=== PATIENT | female | born 1955 | race Caucasian/White ===

== ENCOUNTER 2018-12-19 13:35 | Observation (INO) | payer OTHER ==
[~2018-12-19] VITALS: Ht 162.6 cm; Wt 90.1 kg
[2018-12-19] MEDS ORDERED: SYNTHROID (13:53)
[2018-12-19] MEDS ORDERED: METFORMIN PO (13:53)
[2018-12-19] MEDS ORDERED: GABAPENTIN (13:53)
[2018-12-19] MEDS ORDERED: HYDROCHLOROTH12.5 MG PO (13:53)
[2018-12-19] MEDS ORDERED: SODIUM CHLORIDE FLUSH 10ML SYR IVF ONE (14:00)
[2018-12-19] MEDS ORDERED: NITROGLYCERIN SINGLE TAB 0.4 MG SL PRN (14:00)
[2018-12-19] MEDS ORDERED: NITROGLYCERIN OINT 2%, 1GM TP ONE ×2 (14:00→14:29)
--- NOTE | 2018-12-19 14:09 | NUR ---
PT TO ED FOR SUDDEN ONSET, NONRADIATING, STERNAL CP AT 0800. PT TOOK 162 ASA A FARIBA, THEN WENT TO URGENT CARE. UC REFERRED TO ED. IV ESTABLISHED AND 1 NITRO AND 162 MORE ASA GIVEN BY [facility] SUPERVISOR LIME. PT CONNECTED TO MONITORS. VSS. EDMD ASSESSMENT COMPLETE. EKG COMPLETE. LABS DRAWN. AWAITING RESULTS.
[2018-12-19] MEDS ORDERED: NITROGLYCERIN SINGLE TAB 0.4 MG SL ONE (14:29)
--- NOTE | 2018-12-19 14:33 | NUR ---
PT RESTING IN ROOM WITH AT BS. VSS. PT REPORTS CP 08/21. PT MEDICATED PER SEP. NO NEEDS EXPRESSED. CALL [facility]. AWAITING RESULTS.
[2018-12-19 14:36] LABS: BASOPHILS # (AUTO) 0.02 x10^3/uL (0-0.1); BASOPHILS % (AUTO) 0 % (0-1); EOSINOPHILS # (AUTO) 0.24 x10^3/uL (0-0.4); EOSINOPHILS % (AUTO) 3 % (1-7); LYMPHOCYTES # (AUTO) 1.89 x10^3/uL (1-3.4); LYMPHOCYTES % (AUTO) 25 % (22-44); MD NO; MEAN CORPUSCULAR HEMOGLOBIN 30.7 pg (27.0-34.8); MEAN CORPUSCULAR HGB CONC 33.8 g/dL (32.4-35.8); MEAN CORPUSCULAR VOLUME 90.8 fL (80-100); MONOCYTES # (AUTO) 0.61 x10^3/uL (0.2-0.8); MONOCYTES % (AUTO) 8 % (2-9); NEUTROPHILS # (AUTO) 4.82 x10^3/uL (1.8-6.8); NEUTROPHILS % (AUTO) 64 % (42-75); PLATELET COUNT 231 x10^3/uL (130-400); RED BLOOD COUNT 5.13 x10^6/uL (3.82-5.3)
[2018-12-19 14:42] LABS: ALBUMIN 4.4 g/dL (3.4-5.0); ANION GAP 11 mmol/L (5-15); CALCIUM 10.1 mg/dL (8.5-10.1); CHLORIDE 105 mmol/L (98-107)
[2018-12-19 14:48] LABS: ALANINE AMINOTRANSFERASE 63 U/L (12-78); ALKALINE PHOSPHATASE 66 U/L (45-117); BILIRUBIN,TOTAL 1.1 mg/dL (0.2-1.0); CREATININE 0.66 mg/dL (0.55-1.02); TOTAL PROTEIN 7.6 g/dL (6.4-8.2); TROPONIN I < 0.015 ng/mL (0.000-0.045)
--- NOTE | 2018-12-19 14:51 | NUR ---
ALL RESULTS BACK AT THIS TIME. CHART UP FOR RECHECK.
[2018-12-19] MEDS ORDERED: KETOROLAC 30 MG/1 ML IVPush ONE (15:00)
--- NOTE | 2018-12-19 16:15 | NUR ---
pt up self to rr with steady gait. no needs expressed. vss. awaiting room assignment.
[2018-12-19] MEDS ORDERED: KETOROLAC 30 MG/1 ML ONE (16:50)
--- NOTE | 2018-12-19 16:55 | NUR ---
PT RESTING IN ROOM. VSS. PT REPORTS DECREASE IN CP. NO NEEDS EXPRESSED. CALL [facility] WITHIN REACH. AWAITING ROOM ASSIGNMENT.
[2018-12-19 16:57] VITALS: BP 130/76
[2018-12-19] MEDS ORDERED: ZOLPIDEM 5MG TABLET PO PRN (17:00)
[2018-12-19] MEDS ORDERED: NITROGLYCERIN 0.4 MG/SPRAY SL PRN (17:00)
[2018-12-19] MEDS ORDERED: GABAPENTIN 300 MG CAPSULE PO PRN (17:00)
[2018-12-19] MEDS ORDERED: NITROGLYCERIN 0.4 MG BOTTLE (25 TABS) SL PRN (17:00)
[2018-12-19] MEDS ORDERED: morphine SULFATE 10 MG/ML, 1ML IV PRN (17:00)
[2018-12-19] MEDS ORDERED: ACETAMINOPHEN 325 MG TABLET PO PRN (17:00)
[2018-12-19 17:24] LABS: CHOL/HDL RATIO 3.6; LDL/HDL RATIO 2.3 (0.5-3.0)
[2018-12-19] MEDS ORDERED: PLEASE ENTER HEIGHT AND WEIGHT MC SCH (17:30)
[2018-12-19] MEDS: SODIUM CHLORIDE FLUSH 10ML SYR IVF SCH (20:18)
[2018-12-19 22:00] LABS: TROPONIN I < 0.015 ng/mL (0.000-0.045)
[2018-12-20 01:14] VITALS: BP 134/75
[2018-12-20 04:39] LABS: TROPONIN I < 0.015 ng/mL (0.000-0.045)
[2018-12-20] MEDS ORDERED: ASPIRIN 325 MG TABLET EC PO SCH (06:00)
[2018-12-20 07:00] VITALS: BP 121/77
[2018-12-20] MEDS ORDERED: HYDROCHLOROTHIAZIDE 12.5 MG CAPSULE PO SCH (09:00)
[2018-12-20] MEDS: SODIUM CHLORIDE FLUSH 10ML SYR IVF SCH (09:56)
== END 2018-12-20 12:45 | disposition home or self-care (01) ==
LOC: ED 15:16 → EDIP 16:39 → INTOOBSV 16:39 → 5SO 17:25 → DCLOUNGE 12-20 12:43
PROVIDERS: ADMIT Hospitalist; ATTEND Hospitalist
DX: R07.89 Other chest pain (principal); E03.9 Hypothyroidism, unspecified; H81.09 Meniere's disease, unspecified ear; E87.6 Hypokalemia; J45.909 Unspecified asthma, uncomplicated; Z90.710 Acquired absence of both cervix and uterus; Z79.899 Other long term (current) drug therapy
CPT/HCPCS: 36415; 71045; 80053; 80061; 83690; 84484; 85025; 85379; 93005; 93017; 96374; 99284; G0378; J1885

== ENCOUNTER → 2019-07-10 | Outpatient (CLI) | payer OTHER ==
[~2019-07-10] MED LIST: GABAPENTIN; HYDROCHLOROTH12.5 MG PO; METFORMIN PO; SYNTHROID
== END | disposition home or self-care (01) ==
LOC: CFH 10:16
PROVIDERS: ATTEND Nurse Practitioner
DX: R92.8 Other abnormal and inconclusive findings on diagnostic imaging of breast (principal)
CPT/HCPCS: 77066

== ENCOUNTER 2019-08-08 19:13 | Emergency (ER) | payer OTHER ==
[~2019-08-08] VITALS: Ht 165.1 cm; Wt 87.9 kg
--- NOTE | 2019-08-08 20:10 | NUR ---
GIAN RN: PT. TO ROOM FROM LOBBY AT THIS TIME. AMBULATORY WITH STEADY GAIT. ACCOMPANIED BY FAMILY.
[2019-08-08 20:44] LABS: MICROSCOPIC NOT IND
[2019-08-08 20:50] LABS: BASOPHILS # (AUTO) 0.02 x10^3/uL (0-0.1); BASOPHILS % (AUTO) 0 % (0-1); EOSINOPHILS # (AUTO) 0.25 x10^3/uL (0-0.4); EOSINOPHILS % (AUTO) 4 % (1-7); LYMPHOCYTES # (AUTO) 1.59 x10^3/uL (1-3.4); LYMPHOCYTES % (AUTO) 23 % (22-44); MD NO; MEAN CORPUSCULAR HEMOGLOBIN 30.6 pg (27.0-34.8); MEAN CORPUSCULAR HGB CONC 34.1 g/dL (32.4-35.8); MEAN CORPUSCULAR VOLUME 89.9 fL (80-100); MEAN PLATELET VOLUME 8.4 fL (7.4-10.4); MONOCYTES # (AUTO) 0.54 x10^3/uL (0.2-0.8); MONOCYTES % (AUTO) 8 % (2-9); NEUTROPHILS # (AUTO) 4.51 x10^3/uL (1.8-6.8); NEUTROPHILS % (AUTO) 65 % (42-75); PLATELET COUNT 215 x10^3/uL (130-400); RED BLOOD COUNT 4.93 x10^6/uL (3.82-5.3); RED CELL DISTRIBUTION WIDTH 12.8 % (9.6-15.2)
[2019-08-08 21:00] LABS: ALANINE AMINOTRANSFERASE 70 U/L (12-78); ANION GAP 8 mmol/L (5-15); CALCIUM 9.2 mg/dL (8.5-10.1); CHLORIDE 105 mmol/L (98-107)
[2019-08-08 21:00] LABS: CULTURE INDICATED? NO
[2019-08-08] MEDS ORDERED: SODIUM CHLORIDE FLUSH 10ML SYR IVF ONE (21:00)
[2019-08-08 21:02] LABS: ALKALINE PHOSPHATASE 69 U/L (45-117); BILIRUBIN,TOTAL 0.7 mg/dL (0.2-1.0)
[2019-08-08] MEDS ORDERED: OMNIPAQUE 350 MG/ML, 100ML BOTTLE ONE (21:40)
[2019-08-08 23:21] VITALS: BP 138/90
== END 2019-08-08 23:24 | disposition home or self-care (01) ==
LOC: ED 21:53
DX: K62.5 Hemorrhage of anus and rectum (principal)
CPT/HCPCS: 36415; 74177; 80053; 81003; 85025; 99284; Q9967